=== PATIENT | female | born 1995 | race American Indian/Alaskan Native ===

== ENCOUNTER 2018-03-15 10:24 | Emergency (ER) | payer BC, OTHER ==
[2018-03-15] MEDS ORDERED: ROCEPHIN IM ONE (13:51)
[2018-03-15] MEDS ORDERED: XYLOCAINE 1% MPF 5 mL INFILTRATI ONE (13:51)
[2018-03-15] MEDS ORDERED: ZITHROMAX PO ONE (13:51)
--- NOTE | 2018-03-15 13:54 | Emergency Department Report ---
Chief Complaint: Urogenital-Female Stated Complaint: GYNECOLOGISTS Time Seen by Provider: 03/15/18 13:50 - HPI History of Present Illness: 23-year-old female presents to the emergency department with complaint of needing treatment for chlamydia, as well as some vaginal irritation. The patient says that she was diagnosed with Chlamydia a few weeks ago at a clinic and was sent home on metronidazole and "some other pill." She says that she was noncompliant with the medications. Her boyfriend went to a different hospital this morning and received treatment. She does admit to a small amount of vaginal discharge also says that she has some vaginal irritation. 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 - ROS Review of Systems: Positive for vaginal irritation, vaginal discharge Negative for fever, abdominal pain, nausea, vomiting - Exam Vital Signs: Vital Signs 03/15/18 11:36 Temperature 98.0 F Pulse Rate 82 Respiratory 16 Rate Blood Pressure 112/70 O2 Sat by Pulse 100 Oximetry Physical Exam: Patient does not appear in any acute distress. Heart and lung sounds are normal auscultation. Soft abdomen. MSE screening note: Focused history and physical exam performed. Due to findings the following was ordered: Patient will be treated empirically with Rocephin and azithromycin for gonorrhea and chlamydia. We will check a urinalysis and urine test. Patient will have a pelvic examination for the vaginal irritation and for further evaluation. ED Disposition for MSE Condition: Stable Referrals: PRIMARY CARE, [Primary Care Provider] - 3-5 Days
[2018-03-15 15:40] LABS: Bilirubin,Urine NEG (Negative); Blood,Urine NEG (Negative); Color,Urine Yellow (Yellow); Mucus,Urine 2+ /HPF; Protein,Urine <15 mg/dL mg/dL (Negative); Urobilinogen,Urine < 2.0 mg/dL (<2.0)
[2018-03-15 15:41] LABS: HCG Qualitative,Urine Negative (Negative)
--- NOTE | 2018-03-15 16:01 | Emergency Department Report ---
ED Female HPI - General Chief complaint: Urogenital-Female Stated complaint: GYNECOLOGISTS Time Seen by Provider: 03/15/18 13:50 Source: patient Mode of arrival: Ambulatory Limitations: No Limitations - History of Present Illness Initial comments: This is a 23-year-old female nontoxic, well nourished in appearance, no acute signs of distress presents to the ED with c/o of vaginal discharge. Patient denies any vaginal pain or swelling. Patient denies any vaginal ulcers or lesions. Patient stated she was diagnosed with chlamydia but has not been treated. Patient stated that she has been taking Flagyl and some other pill. Patient denies any nausea, vomiting, chest pain, shortness of breathe, fever, chills, headache, back pain, numbness, tingling, stiff neck. Patient denies any urinary symptoms. Patient denies any allergies or PMH. MD Complaint: vaginal discharge, possible STD -: week(s) (1) Severity scale (0 -10): 0 Improves with: none Worsens with: none Associated Symptoms: vaginal discharge. denies: vaginal bleeding, abdominal pain, nausea/vomiting, fever/chills, headaches, loss of appetite, dysuria, hematuria, rash, seizure, shortness of breath, syncope, weakness - Related Data Sexually active: Yes Previous Rx's Medication Instructions Recorded Last Taken Type Acetaminophen/Codeine 1 tab PO Q6H PRN #14 tab 08/20/14 Unknown Rx [Acetaminophen-Codeine #3 TAB] Famotidine [Pepcid] 10 mg PO BID #60 tablet 08/20/14 Unknown Rx Allergies Allergy/AdvReac Type Severity Reaction Status Date / Time No Known Allergies Allergy Verified 06/25/14 01:14 EST ED Review of Systems ROS: Stated complaint: GYNECOLOGISTS Other details as noted in HPI Constitutional: denies: chills, fever Eyes: denies: eye pain, eye discharge, vision change ENT: denies: ear pain, throat pain Respiratory: denies: cough, shortness of breath, wheezing Cardiovascular: denies: chest pain, palpitations Endocrine: no symptoms reported Gastrointestinal: denies: abdominal pain, nausea, diarrhea Genitourinary: urgency, dysuria, frequency. denies: hematuria, discharge Musculoskeletal: denies: back pain, joint swelling, arthralgia Skin: denies: rash, lesions Neurological: denies: headache, weakness, paresthesias Psychiatric: denies: anxiety, depression Hematological/Lymphatic: denies: easy bleeding, easy bruising ED Past Medical Hx - Past Medical History Previous Medical History?: No - Surgical History Past Surgical History?: No - Social History Smoking Status: Never Smoker Substance Use Type: Marijuana - Medications Home Medications: Home Medications Medication Instructions Recorded Confirmed Last Taken Type Acetaminophen/Codeine 1 tab PO Q6H PRN #14 tab 08/20/14 Unknown Rx [Acetaminophen-Codeine #3 TAB] Famotidine [Pepcid] 10 mg PO BID #60 tablet 08/20/14 Unknown Rx ED Physical Exam - General Limitations: No Limitations General appearance: alert, in no apparent distress - Head Head exam: Present: atraumatic, normocephalic - Eye Eye exam: Present: normal appearance Pupils: Present: normal accommodation - ENT ENT exam: Present: normal exam, mucous membranes moist - Neck Neck exam: Present: normal inspection, full ROM. Absent: tenderness, meningismus, lymphadenopathy - Respiratory Respiratory exam: Present: normal lung sounds bilaterally. Absent: respiratory distress, wheezes, rales, rhonchi, stridor, chest wall tenderness, accessory muscle use, decreased breath sounds, prolonged expiratory - Cardiovascular Cardiovascular Exam: Present: regular rate, normal rhythm, normal heart sounds. Absent: irregular rhythm, systolic murmur, diastolic murmur, rubs, gallop - GI/Abdominal GI/Abdominal exam: Present: soft, normal bowel sounds. Absent: distended, tenderness, guarding, rebound, rigid, diminished bowel sounds - External exam: Present: normal external exam, other (plant manager Angela RN present during exam). Absent: erythema, swelling, lesions, lacerations, bleeding Speculum exam: Present: cervical discharge, other (plant manager Angela RN present during exam). Absent: erythema, vaginal discharge, vaginal bleeding, foreign body, tissue, laceration Bi-manual exam: Present: normal bi-manual exam, other (plant manager Angela RN present during exam). Absent: cervical motion tendernes, adnexal tenderness, adnexal mass, uterine enlargement, uterine tenderness - Extremities Exam Extremities exam: Present: normal inspection, full ROM - Back Exam Back exam: Present: normal inspection, full ROM. Absent: tenderness, CVA tenderness (R), CVA tenderness (L), muscle spasm, paraspinal tenderness, vertebral tenderness, rash noted - Neurological Exam Neurological exam: Present: alert, oriented X3, normal gait - Psychiatric Psychiatric exam: Present: normal affect, normal mood - Skin Skin exam: Present: warm, dry, intact, normal color. Absent: rash ED Course Vital Signs 03/15/18 11:36 Temperature 98.0 F Pulse Rate 82 Respiratory 16 Rate Blood Pressure 112/70 O2 Sat by Pulse 100 Oximetry - Reevaluation(s) Reevaluation #1: 03/15/18 16:01 Patient is speaking in full sentences with no signs of distress noted. ED Medical Decision Making - Medical Decision Making This is a 23-year-old female that presents with possible STD. Patient is stable was examined by me. There is no abdominal tenderness. No pelvic pain. UA obtained. Wet prep obtained. Gonorrhea chlamydia swab pending. Patient was instructed to return in 3-5 days for GC results. Patient wanted empirical treatment so patient received 250 mg Rocephin and 1 g of azithromycin by mouth. Patient was instructed to Follow-up with a primary care doctor in 3-5 days or if symptoms worsen and continue return to emergency room as soon as possible. At time of discharge, the patient does not seem toxic or ill in appearance. No acute signs of distress noted. Patient agrees to discharge treatment plan of care. No further questions noted by the patient. Critical care attestation.: If time is entered above; I have spent that time in minutes in the direct care of this critically ill patient, excluding procedure time. ED Disposition Clinical Impression: Possible exposure to STD Disposition: DC-01 TO HOME OR SELFCARE Is pt being admited?: No Does the pt Need Aspirin: No Condition: Stable Instructions: Safe Sex (ED) Additional Instructions: Follow-up with a primary care doctor in 3-5 days or if symptoms worsen and continue return to emergency room as soon as possible. Return in 3-5 days for gonorrhea and chlamydia results. Referrals: PRIMARY MD HENRIETTA [Primary Care Provider] - 3-5 Days CHANA PARR MD [Staff Physician] - 3-5 Days [facility] [Outside] - 3-5 Days [facility] [Outside] - 3-5 Days Forms: Work/School Release Form(ED)
[2018-03-15 16:31] VITALS: BP 128/95
== END 2018-03-15 16:31 | disposition home or self-care (01) ==
LOC: ED 10:24
DX: N89.8 Other specified noninflammatory disorders of vagina (principal); F12.122 Cannabis abuse with intoxication with perceptual disturbance
CPT/HCPCS: 81001; 81025; 87210; 87591; 96372; 99284; J0696

== ENCOUNTER 2018-03-20 10:30 | Emergency (ER) | payer BC ==
[2018-03-20 10:37] VITALS: BP 137/56
--- NOTE | 2018-03-20 14:17 | Emergency Department Report ---
ED Female HPI - General Chief complaint: Medical Clearance Stated complaint: FOLLOW UP Time Seen by Provider: 03/20/18 11:10 Source: patient Mode of arrival: Ambulatory Limitations: No Limitations - History of Present Illness Initial comments: This is a 23-year-old female here reports that she examined external vaginal irritation and some redness. She says she was seen here in Thursday for STD and was treated for E and chlamydia. She said that she had STD check at Dr. Gabby Grimes [employer] office and he called her and told to come to the emergency room to get treated. She says she got the cocktail that she is having some irritation now. She also reports some itching on the outside of her vaginal area. Pain is 0-10. Denies any discharge. Denies any abdominal or back pain. Denies any urinary burning, frequency or urgency. She said that Dr. Grimes put her on Flagyl for bacterial vaginosis but she discontinued it because it was making her sick. MD Complaint: other (vaginal itching and and irritation) Onset/Timin -: days(s) Severity scale (0 -10): 0 Are you Now?: No Last Menstrual Period: 03/02/18 EDC: 12/07/18 Associated Symptoms: other (vaginal itching and irritation). denies: vaginal discharge, vaginal bleeding, abdominal pain, nausea/vomiting, fever/chills, headaches, loss of appetite, dysuria, hematuria, rash, seizure, shortness of breath, syncope, weakness - Related Data Sexually active: Yes Previous Rx's Medication Instructions Recorded Last Taken Type Acetaminophen/Codeine 1 tab PO Q6H PRN #14 tab 08/20/14 Unknown Rx [Acetaminophen-Codeine #3 TAB] Famotidine [Pepcid] 10 mg PO BID #60 tablet 08/20/14 Unknown Rx Nystatin Oint [Mycostatin Oint] 1 applicatio TP TID 7 Days #1 tube 03/20/18 Unknown Rx Allergies Allergy/AdvReac Type Severity Reaction Status Date / Time No Known Allergies Allergy Verified 03/20/18 10:32 ED Review of Systems ROS: Stated complaint: FOLLOW UP Other details as noted in HPI Constitutional: denies: chills, fever ENT: denies: throat pain Respiratory: denies: cough, shortness of breath, SOB with exertion, SOB at rest , stridor, wheezing Cardiovascular: denies: chest pain, palpitations, edema, syncope Gastrointestinal: denies: abdominal pain, nausea, vomiting, diarrhea Genitourinary: other (vaginal itching and irritation). denies: urgency, dysuria , frequency, hematuria, discharge, abnormal menses Musculoskeletal: denies: back pain, joint swelling, arthralgia Skin: denies: rash, lesions ED Past Medical Hx - Past Medical History Previous Medical History?: No - Surgical History Past Surgical History?: No - Family History Family history: hypertension - Social History Smoking Status: Never Smoker Substance Use Type: None - Medications Home Medications: Home Medications Medication Instructions Recorded Confirmed Last Taken Type Acetaminophen/Codeine 1 tab PO Q6H PRN #14 tab 08/20/14 Unknown Rx [Acetaminophen-Codeine #3 TAB] Famotidine [Pepcid] 10 mg PO BID #60 tablet 08/20/14 Unknown Rx Nystatin Oint [Mycostatin Oint] 1 applicatio TP TID 7 Days #1 tube 03/20/18 Unknown Rx ED Physical Exam - General Limitations: No Limitations General appearance: alert, in no apparent distress - Head Head exam: Present: atraumatic, normocephalic, normal inspection - Eye Eye exam: Present: normal appearance, PERRL, EOMI Pupils: Present: normal accommodation - ENT ENT exam: Present: normal orophraynx, mucous membranes moist - Neck Neck exam: Present: normal inspection, full ROM. Absent: tenderness, lymphadenopathy - Respiratory Respiratory exam: Present: normal lung sounds bilaterally. Absent: respiratory distress, chest wall tenderness - Cardiovascular Cardiovascular Exam: Present: normal rhythm, tachycardia, normal heart sounds - GI/Abdominal GI/Abdominal exam: Present: soft, normal bowel sounds. Absent: distended, tenderness, guarding, rebound, rigid, organomegaly, mass, bruit - Rectal Rectal exam: Present: normal inspection - External exam: Present: erythema (mild erythema to the labia minor or), swelling (labia minora), other (small less than 1 mm avulsion of skin noted to entrance of vaginal area. Tender to palpate. Patient says that she was shaven and she cut herself. No signs of infection noted.). Absent: normal external exam, lesions, lacerations, ecchymosis, bleeding Speculum exam: Present: normal speculum exam, vaginal discharge (normal). Absent: erythema, cervical discharge, vaginal bleeding, foreign body, tissue, laceration Bi-manual exam: Present: normal bi-manual exam. Absent: cervical motion tendernes, adnexal tenderness, adnexal mass - Extremities Exam Extremities exam: Present: normal inspection, full ROM, other (No cce. + 2 pulses in all extremities, no neurovascular compromise). Absent: tenderness, normal capillary refill, pedal edema, joint swelling, calf tenderness - Back Exam Back exam: Present: normal inspection, full ROM. Absent: CVA tenderness (R), CVA tenderness (L), rash noted - Neurological Exam Neurological exam: Present: alert, oriented X3, normal gait - Psychiatric Psychiatric exam: Present: normal affect, normal mood - Skin Skin exam: Present: warm, dry, intact, normal color. Absent: rash ED Course Vital Signs 03/20/18 03/20/18 10:33 14:17 Temperature 98.8 F Pulse Rate 102 H 84 Respiratory 18 Rate Blood Pressure 137/56 O2 Sat by Pulse 100 Oximetry - Reevaluation(s) Reevaluation #1: 03/20/18 14:27 Recent stable throughout ED course. ED Medical Decision Making - Medical Decision Making This is a 23-year-old female here report that she has external vaginal irritation and area on her vaginal area this erythema and each. She says she got treated for gonorrhea and chlamydia in mind at this hospital after test was done by Dr. Grimes [employer]. His office called her to tell her to the hospital be treated. She said a couple days after she started getting some irritation in her external vaginal area. She is not having any vaginal bleeding or any urinary symptoms and she denies vaginal discharge. Patient was screened by Dr. Dilia [place]. I examined patient and she has external vaginal area a yeast infection. She had wet prep done and she is negative for clue cell, yeast or Trichomonas. Patient says she had urinalysis done on Thursday and was negative. Pelvic exam normal cervix and normal vaginal discharge. No CMT. No adnexal tenderness. I discussed with patient my physical findings, diagnosis and laboratory findings and she voiced understanding. I discussed with her she needs to follow-up with Dr. Kai Grimes [employer] in 3-5 days. He told her that she is safe that needs to. Remove. Vulvovaginitis-patient will be treated with nystatin topical ointment and referred back to Dr. Gabby Grimes. Patient instructed to practice safe sex, educated on medication, diagnosis and treatment plan and she voiced understanding. Discharge home in stable condition, her vital signs are stable and she is afebrile. She is to follow-up with Dr.T Grimes in 3-5 days that she voiced understanding. Discharged home with prescription for nystatin topical ointment - Differential Diagnosis STD, yeast infection, bacterial vaginosis, herpes, syphilis Critical care attestation.: If time is entered above; I have spent that time in minutes in the direct care of this critically ill patient, excluding procedure time. ED Disposition Clinical Impression: Candidal vulvovaginitis Disposition: TO HOME OR SELFCARE Is pt being admited?: No Does the pt Need Aspirin: No Condition: Stable Instructions: Vulvovaginal Candidiasis (ED) Additional Instructions: Practice safe sex Keep affected ear clean and dry Apply antifungal ointment to the external vaginal area 3 times a day for 7 days. Follow-up with Dr. Kai Grimes [employer] in 3-5 days. Prescriptions: Nystatin Oint [Mycostatin Oint] 1 applicatio TP TID 7 Days #1 tube Referrals: PRIMARY CAREMD [Primary Care Provider] - 3-5 Days KAI GRIMES MD [Staff Physician] - 3-5 Days Forms: Work/School Release Form(ED)
== END 2018-03-20 15:00 | disposition home or self-care (01) ==
LOC: ED 10:30
DX: B37.3 Candidiasis of vulva and vagina (principal)
CPT/HCPCS: 87210; 99283

== ENCOUNTER 2018-03-29 09:29 | Emergency (ER) | payer BC ==
[2018-03-29 11:08] LABS: Bilirubin,Urine NEG (Negative); Blood,Urine LG (Negative); Color,Urine Yellow (Yellow); HCG Qualitative,Urine Negative (Negative); Mucus,Urine FEW /HPF; Protein,Urine <15 mg/dL mg/dL (Negative); Urobilinogen,Urine < 2.0 mg/dL (<2.0)
--- NOTE | 2018-03-29 11:35 | Emergency Department Report ---
ED Female HPI - General Chief complaint: Abdominal Pain Stated complaint: POSS MISCARRIAGE Time Seen by Provider: 03/29/18 11:06 Source: patient Mode of arrival: Ambulatory Limitations: No Limitations - History of Present Illness Initial comments: This is a 23-year-old -Tongan female who presents with vaginal bleeding and vaginal pain for 1 month intermittently. Patient states she was seen here in the ER 1 month ago and treated for STD exposure. She was referred to [facility] for follow-up. She was seen there and diagnosed with a vaginal cyst. She was advised to follow-up with an [facility] but has not had time to follow-up with them. Vaginal bleeding is related to menses starting. Patient states she started feeling better after completion of antibiotics from [facility] but yesterday symptoms return. She is now having sharp pains in vagina and dysuria. Patient states pain is worse with ambulation. Patient reports pain as 10/10 on pains scale. Denies frequency, urgency, vaginal discharge, and pelvic pain. MD Complaint: vaginal bleeding, possible STD Onset/Timin -: month(s) Location: labia Radiation: non-radiating Severity: moderate Severity scale (0 -10): 10 Quality: sharp Consistency: constant Improves with: none Worsens with: intercourse, menstrual period, movement Are you Now?: No Last Menstrual Period: 03/31/18 EDC: 01/05/19 Associated Symptoms: denies other symptoms - Related Data Sexually active: Yes : 0 Para: 0 A: 0 Previous Rx's Medication Instructions Recorded Last Taken Type Acetaminophen/Codeine 1 tab PO Q6H PRN #14 tab 08/20/14 Unknown Rx [Acetaminophen-Codeine #3 TAB] Famotidine [Pepcid] 10 mg PO BID #60 tablet 08/20/14 Unknown Rx Nystatin Oint [Mycostatin Oint] 1 applicatio TP TID 7 Days #1 tube 03/20/18 Unknown Rx Ibuprofen [Motrin 800 MG tab] 800 mg PO Q8HR PRN #15 tablet 03/29/18 Unknown Rx Sulfamethoxazole/Trimethoprim 1 each PO BID #14 tablet 03/29/18 Unknown Rx [Bactrim DS TAB] Allergies Allergy/AdvReac Type Severity Reaction Status Date / Time No Known Allergies Allergy Verified 03/20/18 10:32 ED Review of Systems ROS: Stated complaint: POSS MISCARRIAGE Other details as noted in HPI Constitutional: denies: chills, fever Respiratory: denies: cough, shortness of breath, wheezing Cardiovascular: denies: chest pain, palpitations Gastrointestinal: denies: abdominal pain, nausea, vomiting, diarrhea Genitourinary: other (painful bump inside of the vagina). denies: urgency, dysuria, discharge Skin: denies: rash, lesions Neurological: denies: headache, weakness, paresthesias Psychiatric: denies: anxiety, depression ED Past Medical Hx - Past Medical History Previous Medical History?: No - Surgical History Past Surgical History?: No - Social History Smoking Status: Never Smoker Substance Use Type: None - Medications Home Medications: Home Medications Medication Instructions Recorded Confirmed Last Taken Type Acetaminophen/Codeine 1 tab PO Q6H PRN #14 tab 08/20/14 Unknown Rx [Acetaminophen-Codeine #3 TAB] Famotidine [Pepcid] 10 mg PO BID #60 tablet 08/20/14 Unknown Rx Nystatin Oint [Mycostatin Oint] 1 applicatio TP TID 7 Days #1 tube 03/20/18 Unknown Rx Ibuprofen [Motrin 800 MG tab] 800 mg PO Q8HR PRN #15 tablet 03/29/18 Unknown Rx Sulfamethoxazole/Trimethoprim 1 each PO BID #14 tablet 03/29/18 Unknown Rx [Bactrim DS TAB] ED Physical Exam - General Limitations: No Limitations General appearance: alert, in no apparent distress - Respiratory Respiratory exam: Present: normal lung sounds bilaterally. Absent: respiratory distress - Cardiovascular Cardiovascular Exam: Present: regular rate, normal rhythm. Absent: systolic murmur, diastolic murmur, rubs, gallop - GI/Abdominal GI/Abdominal exam: Present: soft, normal bowel sounds. Absent: organomegaly, mass - External exam: Present: normal external exam. Absent: erythema, swelling, lesions, lacerations, ecchymosis, bleeding Speculum exam: Present: vaginal bleeding. Absent: normal speculum exam ( patient unable to tolerate speculum exam, manually palpated and tender nodule, right labia minora), erythema, vaginal discharge, cervical discharge, foreign body, tissue, laceration Bi-manual exam: Absent: cervical motion tendernes, adnexal tenderness, adnexal mass, uterine enlargement, uterine tenderness - Back Exam Back exam: Present: normal inspection. Absent: CVA tenderness (R), CVA tenderness (L), rash noted - Neurological Exam Neurological exam: Present: alert, oriented X3 - Psychiatric Psychiatric exam: Present: normal affect, normal mood - Skin Skin exam: Present: warm, dry, intact, normal color. Absent: rash ED Course Vital Signs 03/29/18 09:51 Temperature 98.4 F Pulse Rate 91 H Respiratory 16 Rate Blood Pressure 104/83 O2 Sat by Pulse 98 Oximetry ED Medical Decision Making - Medical Decision Making This is a 23-year-old -Tongan female who presents with painful nodule on right labia minora x 2 days. Patient was examined by me. Vitals are stable and in no acute distress. No labs ordered. Patient unable to tolerate speculum exam, palpated tender nodule on manual exam to right labia minora. Patient started on Bactrim DS one tab by mouth twice a day 7 days. Referral to [facility] for follow-up. Discharged home in stable condition. Discussed prevention options. F/U with PCP in 2-3 days at [facility]. Critical care attestation.: If time is entered above; I have spent that time in minutes in the direct care of this critically ill patient, excluding procedure time. ED Disposition Clinical Impression: Vaginal wall cyst Disposition: TO HOME OR SELFCARE Is pt being admited?: No Does the pt Need Aspirin: No Condition: Stable Instructions: Chronic Pelvic Pain in Women (ED), Bartholin Cyst (ED) Additional Instructions: Avoid drinking alcohol while taking antibiotics and for 24 hours after completion. Continue safe sexual intercourse. Follow up with Primary Care Provider or health department. Prescriptions: Ibuprofen [Motrin 800 MG tab] 800 mg PO Q8HR PRN #15 tablet PRN Reason: Pain , Severe (7-10) Sulfamethoxazole/Trimethoprim [Bactrim DS TAB] 1 each PO BID #14 tablet Referrals: [facility] [Outside] - 3-5 Days [facility] [Outside] - 3-5 Days [facility] [Provider Group] - 3-5 Days [facility] [Provider Group] - 3-5 Days Forms: Work/School Release Form(ED) Time of Disposition: 12:43 Print Language: SINGAPORE[place]
[2018-03-29 12:56] VITALS: BP 106/81
== END 2018-03-29 12:54 | disposition home or self-care (01) ==
LOC: ED 09:29
DX: N89.8 Other specified noninflammatory disorders of vagina (principal); R10.2 Pelvic and perineal pain; R30.0 Dysuria
CPT/HCPCS: 81001; 81025; 99283